=== PATIENT | male | born 1960 | race Caucasian/White ===

== ENCOUNTER 2022-05-08 09:44 | Day surgery (SDC) | payer BC ==
[~2022-05-08] VITALS: Ht 182.9 cm; Wt 129.5 kg
[~2022-05-08 09:44] MED LIST: GLIPIZIDE10 MG PO; GLUCOSAMINE CO1 EACH PO; JANUVIA100 MG PO; LISINOPRIL-HCT1 EACH PO; METFORMIN HCL1000 MG PO; TYLENOL325 M1 PO
--- NOTE | 2022-05-08 13:44 | NUR ---
05/08/22 1344 Sheets,Bárbara 1337 PT ARRIVED TO PACU ON 3L VIA NC, PT AWAKE AND TALKING TO RN. PT DENIES CONCERNS. 1343 PT EASILY FALLS BACK TO SLEEP AND SMALL AMOUNT OF SNORING NOTED.
--- NOTE | 2022-05-09 13:17 | OR ---
[facility] [address], [place] [address] Signed DATE OF OPERATION: 05/08/2022 SURGEON: Viri Saldaña MD PREOPERATIVE DIAGNOSIS: Colon screening. POSTOPERATIVE DIAGNOSIS: Normal colon to cecum. PROCEDURE: Total colonoscopy to cecum. ANESTHESIA: Intravenous sedation, fentanyl 100 mcg and Versed 5 mg. INDICATION: This large 61-year-old white man is a patient of [facility] and was referred for screening colonoscopy. He has no symptoms of bleeding, diarrhea, or constipation. He does have underlying medical problems including diabetes, hypertension and obesity. He has no family history of colon cancer. He is admitted to undergo screening colonoscopy. He understands the risk of bleeding, infection, and perforation. FINDINGS: The prep was good. Complete colonoscopy was undertaken to the cecum without question. Good visualization of the ileocecal valve and appendiceal orifice was noted. The remaining colon was free of diverticula, polyps, colitis, or cancer. DESCRIPTION OF PROCEDURE: The patient was brought to the endoscopy suite and placed in the lateral decubitus position, given intravenous sedation to the point of slurred speech and nystagmus. Digital rectal examination was normal. An Olympus video colonoscope was passed in the rectum and manipulated throughout the colon ultimately intubating the cecum itself. The ileocecal valve and appendiceal orifice were normal. The scope was withdrawn from that point and examination throughout showed no sign of abnormality, specifically no polyps, diverticular formation, colitis, or cancer. Retroflexed view of the rectum was normal as well. The scope was removed and the patient was taken to the recovery room in good condition. Electronically Signed By: VIRI SALDAÑA MD 05/09/22 1317 PATIENT NAME: RAMESH SANCHEZ OPERATIVE REPORT DATE OF : 64 REPORT #: [id number] PHYSICIAN: VIRI SALDAÑA MD PCP: A[facility] REPORT IS CONFIDENTIAL AND NOT TO BE RELEASED WITHOUT AUTHORIZATION [facility] [address], [place] [address] Signed CONCLUDING DIAGNOSIS: Normal colon to cecum. PLAN: Recommend repeat colonoscopy in 10 years, sooner if clinically indicated. He will return to the ongoing care of [facility] Adam. MD MANA [place]/MODL /[id number] cc: Ave Young PA-C Copies: A[facility] PAC ~ Electronically Signed By: VIRI SALDAÑA MD 05/09/22 1317 PATIENT NAME: RAMESH SANCHEZ OPERATIVE REPORT DATE OF : 64 REPORT #: [id number] PHYSICIAN: VIRI SALDAÑA MD PCP: [facility] PAC REPORT IS CONFIDENTIAL AND NOT TO BE RELEASED WITHOUT AUTHORIZATION
== END 2022-05-08 14:00 | disposition home or self-care (01) ==
LOC: OPS 09:44 → DS 09:53 → OPS 11:45 → DS 12:00 → OPS 12:45 → DS 13:30 → OPS 14:00 → DS 05-15 10:30
PROVIDERS: ATTEND Surgery
PROC: 0DJD8ZZ Inspection of Lower Intestinal Tract, Via Natural or Artificial Opening Endoscopic (ICD-10-PCS; principal; 2022-05-08 11:45)
DX: Z12.11 Encounter for screening for malignant neoplasm of colon (principal)
CPT/HCPCS: J2250; J3010